=== PATIENT | female | born 1955 | race Caucasian/White ===

== ENCOUNTER 2017-03-25 15:31 | Emergency (ER) | payer MEDICAID, MEDICARE, OTHER ==
[~2017-03-25] VITALS: Ht 154.9 cm; Wt 128.4 kg
[2017-03-25 15:41] VITALS: BP 157/82; PULSE 88; RESP 16; TEMP 98; O2SAT 97
[2017-03-25] MEDS ORDERED: DULO20 PO (16:00)
[2017-03-25] MEDS ORDERED: ZOFR4TAB PO (16:02)
[2017-03-25] MEDS ORDERED: MECL-62 PO (16:02)
--- NOTE | 2017-03-25 16:05 | PD ---
HPI Chief Complaint: Dizziness Time Seen by Provider: 15:47 Travel History International Travel<30 days: No Contact w/Intl Traveler<30days: No Traveled to known affect area: No History of Present Illness HPI The patient was seen and examined in the presence of the nurse. This patient complains of dizziness. It is intermittent over the last 4 days. It is definitely positional. Certain positions exacerbate this while others alleviate. She has some nausea as well. No injury or headache or head trauma. Denies muscle weakness or speech slurring or confusion or sensory loss. PFSH Past Medical History Depression: Yes Diminished Hearing: No Genitourinary: Yes Influenza Vaccination: No ?: Not Social History Alcohol Use: No Tobacco Use: No Allergies-Medications (Allergen,Severity, Reaction): Coded Allergies: No Known Allergies (Unverified , 03/25/17) Reported Meds & Prescriptions Reported Meds & Active Scripts Active Meclizine (Meclizine HCl) 25 Mg Tab 25 Mg PO TID PRN Zofran (Ondansetron HCl) 4 Mg Tab 4 Mg PO Q6HR PRN Reported Cymbalta DR (Duloxetine HCl) 20 Mg Capdr 20 Mg PO DAILY Review of Systems General / Constitutional: No: Fever HENT: Positive: Vertigo, No: Headaches Cardiovascular: No: Palpitations Respiratory: No: Cough Gastrointestinal: Positive: Nausea Musculoskeletal: No: Myalgias Skin: No Rash Physical Exam Narrative GENERAL: Well-nourished, well-developed patient. SKIN: Focused skin assessment warm/dry. HEAD: Normocephalic. EYES: No scleral icterus. No injection or drainage. NECK: Supple, trachea midline. No JVD or lymphadenopathy. CARDIOVASCULAR: Regular rate and rhythm without murmurs, gallops, or rubs. RESPIRATORY: Breath sounds equal bilaterally. No accessory muscle use. GASTROINTESTINAL: Abdomen soft, non-tender, nondistended. MUSCULOSKELETAL: No cyanosis, or edema. BACK: Nontender without obvious deformity. No CVA tenderness. NEUROLOGICAL: Awake and alert. Pupils are equal round and reactive. Motor and sensory grossly within normal limits. Five out of 5 muscle strength in all muscle groups. Normal speech. Data Data Last Documented VS Vital Signs Date Time Temp Pulse Resp B/P (MAP) Pulse Ox O2 Delivery O2 Flow Rate FiO2 03/25/17 15:41 98.0 88 16 157/82 (107) 97 Orders Orders Ondansetron Odt (Zofran Odt) (03/25/17 16:15) [facility] Medical Decision Making Medical Screen Exam Complete: Yes Emergency Medical Condition: Yes Medical Record Reviewed: Yes Differential Diagnosis Positional vertigo, labyrinthitis, meningitis Narrative Course I have reviewed the patient's electronic medical record. Patient is neurologically intact. No meningeal signs and normal vital signs. Symptoms are consistent with positional vertigo, certain positions make the vertigo flare while in the room. No emergent imaging is indicated I gave her dose of Zofran here Prescriptions for Zofran and meclizine written. She is driving so I'm not going to sedate her here. Suggested that if her vertigo is significant she should get a ride or Home rather than drive Diagnosis Primary Impression: Positional vertigo Qualified Codes: H81.10 - Benign paroxysmal vertigo, unspecified ear Additional Impression: Nausea Additional Instructions: The patient was advised to follow up with their physician and return if they worsen. The patient was warned about potential sedation for the medications they will receive on prescription. Change positions slowly Med/Other Pt SpecificInfo: Prescription(s) given Scripts Meclizine (Meclizine) 25 Mg Tab 25 MG PO TID Y for VERTIGO, #20 TAB 0 Refills Prov: Jose Blakely MD 03/25/17 Ondansetron (Zofran) 4 Mg Tab 4 MG PO Q6HR Y for NAUSEA OR VOMITING, #12 TAB 0 Refills Prov: Jose Blakely MD 03/25/17 Disposition: 01 DISCHARGE HOME Condition: Stable Jose Blakely MD Mar 25, 2017 16:05
[2017-03-25] MEDS ORDERED: ONDANSETRON ODT 4 MG TAB PO ONE (16:15)
== END 2017-03-25 16:30 | disposition home or self-care (01) ==
LOC: PHED 15:31
DX: H81.10 Benign paroxysmal vertigo, unspecified ear (principal)
CPT/HCPCS: 99284